=== PATIENT | male | born 1980 | race Asian ===

== ENCOUNTER 2017-05-29 10:09 | Emergency (ER) | payer SELFPAY ==
[2017-05-29 13:15] VITALS: BP 115/77
== END 2017-05-29 13:16 | disposition home or self-care (01) ==
LOC: ED 10:09
DX: S86.812A Strain of other muscle(s) and tendon(s) at lower leg level, left leg, initial encounter (principal); Z88.0 Allergy status to penicillin; W01.0XXA Fall on same level from slipping, tripping and stumbling without subsequent striking against object, initial encounter; Y93.89 Activity, other specified; Y92.89 Other specified places as the place of occurrence of the external cause; Y99.8 Other external cause status
CPT/HCPCS: Q0092